=== PATIENT | female | born 1945 | race Asian ===

== ENCOUNTER 2018-04-12 14:43 | Emergency (ER) | payer MEDICARE, MEDICAID ==
[~2018-04-12] VITALS: Ht 157.5 cm; Wt 68.0 kg
[2018-04-12 14:50] VITALS: BP 110/60
[2018-04-12] MEDS ORDERED: Acetaminophen 500mg (ES) tab ORAL ONE (15:00)
[2018-04-12] MEDS ORDERED: Tetanus-Diphtheria Toxoid 0.5ml IM ONE (15:00)
--- NOTE | 2018-04-12 16:02 | Emergency Room Report ---
History of Present Illness General Chief Complaint: Multiple Trauma/Fall Source: Patient, Medical Record Present Illness HPI 72-year-old female with history of diabetes presents with a fall while she was walking she reports she felt dizzy and also felt like someone may have tripped her up, but no neck she tripped her up she just reports that she was a little bit dizzy at [place] to fall forward. She hit her head, and reports pain in her left knee and in her forehead denies pain anywhere else. Allergies: Coded Allergies: No Known Allergies (Unverified , 04/12/18) Patient History Past Medical History: see triage record Reviewed Nursing Documentation: PMH: Agreed; PSxH: Agreed Nursing Documentation-PMH Past Medical History: No History, Except For Hx Diabetes: Yes Review of Systems All Other Systems: negative except mentioned in HPI Physical Exam Vital Signs Date Time Temp Pulse Resp B/P (MAP) Pulse Ox O2 Delivery O2 Flow Rate FiO2 04/12/18 14:41 98.3 92 18 110/60 98 Room Air 98.2 Sp02 EP Interpretation: reviewed, normal General Appearance: no apparent distress, alert, non-toxic Head: normocephalic, other Eyes: bilateral eye normal inspection, bilateral eye PERRL, bilateral eye EOMI ENT: normal ENT inspection, hearing grossly normal, normal pharynx, no angioedema, normal voice, moist mucus membranes Neck: normal inspection, full range of motion, supple, supple/symm/no masses Respiratory: chest non-tender, lungs clear, normal breath sounds, chest symmetrical, palpation of chest normal Cardiovascular #1: normal peripheral pulses, regular rate, rhythm Cardiovascular #2: 2+ radial (R), 2+ radial (L) Gastrointestinal: normal inspection, non tender, soft, no mass, no guarding, no rebound Rectal: deferred Genitourinary: normal inspection, no CVA tenderness Musculoskeletal: back normal, gait/station normal, normal range of motion, non- tender, no calf tenderness Neurologic: alert, responsive, general assignment reporter III-XII nml as tested, motor strength/tone normal, sensory intact, speech normal Psychiatric: judgement/insight normal, memory normal, mood/affect normal, no suicidal/homicidal ideation Skin: normal color, no rash, warm/dry, normal turgor, abrasions - Right thenar eminece area and left knee anteriorly, laceration - 4 cm left Forehead,, linear , no contamination,, no Active bleeding Lymphatic: no adenopathy Procedures Laceration/Wound Repair Laceration/Wound Repair : Consent: Verbal Wound Location: face Wound's Depth, Shape: superficial Wound Length (cm): 5 Wound Explored: clean Irrigated w/ Saline (ccs): 50 Betadine Prep?: No Anesthesia: 1% Lidocaine Volume Anesthetic (ccs): 4 Wound Debrided: minimal Wound Repaired With: sutures Suture Size/Type: 5:0, nylon Number of Sutures: 6 Patient Tolerated: Well Complications: None Medical Decision Making Diagnostic Impression: Primary Impression: Dizziness Additional Impressions: Fall Laceration ER Course Patient reports feeling dizzy, workup fairly unremarkable other than forehead head hematoma and laceration as well as knee abrasions and right hand abrasion. XR's, CT, labs, ekg wnl. Patient able to ambulate, offered admission for pain control and PT. EKG Diagnostic Results EKG Time: 15:39 EP Interpretation: No ST-T segment changes no T-wave inversions Rate: normal Rhythm: NSR ST Segments: no acute changes Rhythm Strip Diag. Results Rhythm Strip Time: 15:58 EP Interpretation: yes Rate: 88 Rhythm: NSR, no PVC's, no ectopy Chest X-Ray Diagnostic Results Chest X-Ray Diagnostic Results : Chest X-Ray Ordered: Yes # of Views/Limited/Complete: 1 View Indication: Other - fall EP Interpretation: Yes Interpretation: no consolidation, no effusion, no pneumothorax, no acute cardiopulmonary disease Impression: No acute disease Electronically Signed by: Tanner Carmen MD Other X-Ray Diagnostic Results Other X-Ray Diagnostic Results #1: X-Ray ordered: L knee # of Views/Limited Vs Complete: Limited Indication: Pain EP Interpretation: Yes Interpretation: no dislocation, no soft tissue swelling, no fractures Impression: No acute disease Electronically Signed by: Tanner Carmen MD Other X-Ray Diagnostic Results #2: X-Ray ordered: pelvis # of Views/Limited Vs Complete: 1 View Indication: Pain EP Interpretation: Yes Interpretation: no dislocation, no soft tissue swelling, no fractures, nonspecific bowel gas, no sbo Impression: No acute disease Electronically Signed by: Tanner Carmen MD CT/MRI/US Diagnostic Results CT/MRI/US Diagnostic Results #1: Imaging Test Ordered: ct head Impression no acute dx CT/MRI/US Diagnostic Results #2: Imaging Test Ordered: ct c spine Impression no acute d Reevaluation Time: 17:55 Last Vital Signs Date Time Temp Pulse Resp B/P (MAP) Pulse Ox O2 Delivery O2 Flow Rate FiO2 04/12/18 14:41 98.3 92 18 110/60 98 Room Air 98.2 Status: improved Reevaluation Impression Patient with no dizziness, no other acute abnormalities, ambulated here in the ED, will be discharged with crutches to assist. I suspect pain likely from left knee which has a very mild effusion, but no obvious serious trauma otherwise. Disposition: HOME, SELF-CARE Condition: Stable Scripts Unable to Obtain Active Prescriptions or Reported Meds TANNER CARMEN M.D Apr 12, 2018 16:02
[2018-04-12 16:18] LABS: BASOPHILS % (AUTO) 1.1 % (0.0-2.0); EOSINOPHILS % (AUTO) 0.7 % (0.0-3.0); HEMATOCRIT 33.8 % (37.0-47.0); HEMOGLOBIN 11.5 G/DL (12.0-16.0); LYMPHOCYTES % (AUTO) 14.9 % (20.0-45.0); MEAN CORPUSCULAR VOLUME 88 FL (80-99); MONOCYTES % (AUTO) 7.3 % (1.0-10.0); NEUTROPHILS % (AUTO) 76.1 % (45.0-75.0); PLATELET COUNT 267 K/UL (150-450); RED BLOOD COUNT 3.84 M/UL (4.20-5.40); RED CELL DISTRIBUTION WIDTH 11.5 % (11.6-14.8); WHITE BLOOD COUNT 9.1 K/UL (4.8-10.8)
[2018-04-12 16:20] LABS: ANION GAP 6 mmol/L (5-15); BLOOD UREA NITROGEN 22 mg/dL (7-18); CALCIUM 9.4 MG/DL (8.5-10.1); CARBON DIOXIDE 29 MMOL/L (21-32); CHLORIDE 103 MMOL/L (98-107); CREATININE 1.1 MG/DL (0.55-1.30); POTASSIUM 4.1 MMOL/L (3.5-5.1); SODIUM 138 MMOL/L (136-145)
[2018-04-12 16:25] LABS: ALANINE AMINOTRANSFERASE 21 U/L (12-78); ALBUMIN 3.7 G/DL (3.4-5.0); ALBUMIN/GLOBULIN RATIO 1.1 (1.0-2.7); ALKALINE PHOSPHATASE 40 U/L (46-116); ASPARTATE AMINO TRANSFERASE 17 U/L (15-37); BILIRUBIN,TOTAL 0.3 MG/DL (0.2-1.0)
--- NOTE | 2018-04-12 16:34 | Diagnostic Imaging Report ---
Indications: Head pain, status post fall Technique: Spiral acquisitions obtained through the brain. Angled axial and coronal 5 x 5 mm slices were reconstructed. Total dose length product 1586.27 mGycm. CTDI vol(s) 70.38,12.94 mGy. Dose reduction achieved using automated exposure control Comparison: None. Findings: There is a left supraorbital scalp small hematoma. No underlying calvarial injury. The remainder the calvarium is intact as well. Visualized orbits are unremarkable. There is ethmoid sinus mucosal disease. There is evidence of surgical mesh in the left sphenoid sinus region and sclerosis of the underlying left sphenoid sinus. No acute intracranial hemorrhage or edema. No mass effect nor midline shift. Normal myers-white differentiation. There is minimal age-related enlargement of ventricles and extra-axial CSF spaces. Impression: Negative for acute intracranial bleed or mass effect Evidence of left supraorbital scalp soft tissue injury Postsurgical changes of the sphenoid sinus region, possibly prior transsphenoidal pituitary surgery. Correlate with surgical history Minimal age-related volume loss The CT scanner at [facility] is accredited by the [employer] and the scans are performed using protocols designed to limit radiation exposure to as low as reasonably achievable to attain images of sufficient resolution adequate for diagnostic evaluation.
--- NOTE | 2018-04-12 16:38 | Diagnostic Imaging Report ---
Indication: And neck pain status post fall Technique: Spiral acquisitions obtained through the cervical spine. No IV contrast utilized. Multiplanar reconstructions were generated. Total dose length product 1586.27 mGycm. CTDIvol(s) 70.38,12.94 mGy. Dose reduction achieved using automated exposure control. Comparison: none Findings: Bony alignment is normal. Vertebral body heights are preserved. No acute fractures. No dislocations. As described on prior head CT, surgical mesh is seen in the suprasellar region. At C4-5, there is mild central posterior disc protrusion, which results in borderline narrowing of the spinal canal and perhaps slight impingement on the anterior aspect of the cord. The disc space is preserved. The neural foramina are preserved. At C5-6, there is moderate degenerative disc narrowing. Posterior osteophytes and short pedicles result in borderline narrowing of the spinal canal. There is mild right and moderate to severe left neural foraminal stenosis, the latter predominantly due to left-sided facet arthrosis but also contributed by uncinate hypertrophy. At the remaining disc levels, no significant disc bulge or protrusion, spinal stenosis, or neural foraminal stenosis. The extra spinal soft tissues are unremarkable. The included upper aerodigestive tract is unremarkable. Impression: No acute bony trauma Mild degenerative changes, as described Evidence of prior sellar surgery-correlate with surgical history The CT scanner at [facility] is accredited by the [employer] and the scans are performed using protocols designed to limit radiation exposure to as low as reasonably achievable to attain images of sufficient resolution adequate for diagnostic evaluation.
--- NOTE | 2018-04-12 16:42 | Diagnostic Imaging Report ---
Indication: Pain, status post fall Technique: One view of the chest Comparison: None Findings: Left hemidiaphragm is slightly obscured laterally, probably due to prominent pericardial fat. Hazy infiltrate or pleural fluid is not completely excludable. The heart is borderline enlarged. The remainder of the lungs and pleural spaces are clear. Impression: Doubt but cannot completely exclude pleural and/or parenchymal disease of the left lateral lung base. No acute process otherwise Borderline cardiomegaly
[2018-04-12 16:51] VITALS: BP 136/52
--- NOTE | 2018-04-12 17:02 | Diagnostic Imaging Report ---
Indications: Pain, status post fall Technique: Three views of the left knee Comparison: None Findings: No acute fractures. No dislocations. Joint spaces are preserved. No radiopaque foreign body. Normal mineralization. There is some suprapatellar soft tissue swelling. There are vascular calcifications Impression: No acute process
--- NOTE | 2018-04-12 17:03 | Diagnostic Imaging Report ---
Indication: Pain, status post fall Technique: One view of the pelvis Comparison: Findings: No definite acute fractures. No dislocations. The joint spaces are preserved Impression: No acute bony trauma
[2018-04-12] MEDS ORDERED: Lidocaine 1% MPF 10mg/ml 5ml ONE (17:06)
[2018-04-12] MEDS ORDERED: Lidocaine 1% MPF 10mg/ml 5ml INJ ONE (17:15)
[2018-04-12] MEDS ORDERED: IBUPROFEN600 MG ORAL (17:57)
[2018-04-12] MEDS ORDERED: Bacitracin Oint UD TOPIC ONE ×2 (18:20→18:30)
[2018-04-12 18:24] VITALS: BP 128/66
== END 2018-04-12 18:44 | disposition home or self-care (01) ==
LOC: EDBD 14:43 → EMR 17:37
DX: R42 Dizziness and giddiness (principal); S01.81XA Laceration without foreign body of other part of head, initial encounter; S80.212A Abrasion, left knee, initial encounter; S60.511A Abrasion of right hand, initial encounter; W01.0XXA Fall on same level from slipping, tripping and stumbling without subsequent striking against object, initial encounter; Y92.89 Other specified places as the place of occurrence of the external cause; Z23 Encounter for immunization
CPT/HCPCS: 36415; 70450; 71045; 72125; 72170; 80053; 84484; 85025; 90471; 90714; 93005; 96372; 99284